=== PATIENT | female | born 1970 | race Hispanic/Latino ===

== ENCOUNTER 2017-07-18 12:46 | Emergency (ER) | payer OTHER ==
[2017-07-18] MEDS ORDERED: MORPHINE SULFATE 4 MG/1ML SYG ONE (12:49)
[2017-07-18] MEDS ORDERED: ONDANSETRON HCL MDV 20ML 2 MG/ML VIAL ONE (12:49)
[2017-07-18] MEDS ORDERED: HYDROMORPHONE 1 MG/1 ML AMP ONE ×2 (13:14→15:05)
[2017-07-18] MEDS ORDERED: LORAZEPAM 2 MG/ML 1 ML VIAL ONE (13:23)
[2017-07-18] MEDS ORDERED: SODIUM CHLORIDE 0.9% 500ML 500 ML IV ONE (13:23)
[2017-07-18] MEDS ORDERED: KETAMINE HCL 100 MG/ML 5ML VIAL IJ ONE (13:23)
[2017-07-18 14:49] LABS: BASOPHILS % (AUTO) 0.4 % (0.0-5.0); EOSINOPHILS % (AUTO) 1.3 % (0.0-8.0); HEMATOCRIT 38.5 % (36-48); LYMPHOCYTES % (AUTO) 18.5 % (21.0-51.0); MEAN CORPUSCULAR HEMOGLOBIN 29.9 pg (27.0-33.0); MEAN CORPUSCULAR HGB CONC 34.1 g/dL (32.0-36.0); MEAN CORPUSCULAR VOLUME 87.5 fL (79-99); MONOCYTES % (AUTO) 4.7 % (3.0-13.0); NEUTROPHILS % (AUTO) 75.1 % (40.0-77.0); PLATELET COUNT (AUTO) 392 K/uL (130-400); RED CELL DISTRIBUTION WIDTH 13.2 % (11.0-15.5); WHITE BLOOD COUNT (AUTO) 9.3 K/uL (4.8-10.8)
[2017-07-18 14:59] LABS: CREATININE 0.8 mg/dL (0.5-1.5)
[2017-07-18] MEDS ORDERED: ONDANSETRON ODT 4 MG TAB ONE (15:20)
[2017-07-20] MEDS ORDERED: IBUP-1673 PO (13:53)
[2017-07-20] MEDS ORDERED: HYDR-4060 PO (13:53)
== END 2017-07-18 15:36 | disposition home or self-care (01) ==
LOC: EDH 12:46
DX: M24.472 Recurrent dislocation, left ankle (principal); S82.492A Other fracture of shaft of left fibula, initial encounter for closed fracture; W18.39XA Other fall on same level, initial encounter; Y93.89 Activity, other specified; Y92.098 Other place in other non-institutional residence as the place of occurrence of the external cause; Y99.8 Other external cause status
CPT/HCPCS: 27840; 36415; 73590 ×2; 73610 ×2; 80048; 84702; 85025; 96361; 96374; 96375; 96376; 99285; J1170 ×2; J2060; J2270; J3490; J7040

== ENCOUNTER 2017-07-24 07:38 | Observation (INO) | payer OTHER ==
[2017-07-20 13:24] LABS: BASOPHILS % (AUTO) 0.8 % (0.0-5.0); EOSINOPHILS % (AUTO) 2.1 % (0.0-8.0); HEMATOCRIT 36.1 % (36-48); LYMPHOCYTES % (AUTO) 25.2 % (21.0-51.0); MEAN CORPUSCULAR HEMOGLOBIN 31.5 pg (27.0-33.0); MEAN CORPUSCULAR HGB CONC 35.7 g/dL (32.0-36.0); MONOCYTES % (AUTO) 5.2 % (3.0-13.0); NEUTROPHILS % (AUTO) 66.7 % (40.0-77.0); PLATELET COUNT (AUTO) 399 K/uL (130-400); RED CELL DISTRIBUTION WIDTH 13.4 % (11.0-15.5); WHITE BLOOD COUNT (AUTO) 8.1 K/uL (4.8-10.8)
[2017-07-20 13:31] LABS: CREATININE 0.8 mg/dL (0.5-1.5)
[2017-07-20 13:50] VITALS: BP 114/83
[~2017-07-24] VITALS: Ht 165.1 cm; Wt 90.7 kg
[2017-07-24] VITALS (23 sets, daily range): BP systolic 96–146; BP diastolic 50–80
[~2017-07-24 07:38] MED LIST: CALDOLOR 800MG+NS 250ML 250 ML IV ONE; DEXAMETHASONE SOD PHOSPHATE 10MG/ML 1ML VIAL ONE; FENTANYL CITRATE PF 50 MCG/1 ML 2ML VIAL ONE; GLYCOPYRROLATE 0.2 MG/ML 5 ML VIAL ONE; HYDR-4060 PO; IBUP-1673 PO; LIDOCAINE PF 2% 5ML ABBOJECT ONE; MIDAZOLAM HCL 1 MG/ML 2ML VIAL ONE; PROPOFOL 10 MG/ML 20ML VIAL IV ONE; ROPIVACAINE 0.5% 5MG/ML 30ML IJ ONE
[2017-07-24] MEDS ORDERED: LACTATED RINGERS 1000ML 1,000 ML IV ONE (08:15)
[2017-07-24] MEDS: CEFAZOLIN SODIUM 1 GM VIAL IVP SCH ×3 (08:30→17:51)
[2017-07-24] MEDS ORDERED: FENTANYL CITRATE PF 50 MCG/1 ML 2ML VIAL ONE ×2 (08:32→11:14)
[2017-07-24] MEDS ORDERED: CEFAZOLIN SODIUM 1 GM VIAL ONE (09:05)
[2017-07-24] MEDS ORDERED: FENTANYL CITRATE PF 50 MCG/1 ML 2ML VIAL IVP SCH (09:58)
[2017-07-24] MEDS ORDERED: ROCURONIUM BROMIDE 10MG/1ML 5ML VL ONE (11:15)
[2017-07-24] MEDS ORDERED: DEXAMETHASONE SOD PHOSPHATE 4 MG/ML 1ML VIAL ONE (11:16)
[2017-07-24] MEDS ORDERED: ONDANSETRON HCL MDV 20ML 2 MG/ML VIAL ONE (11:16)
[2017-07-24] MEDS ORDERED: LIDOCAINE HCL 2% JELLY 5 ML ONE (11:37)
[2017-07-24] MEDS ORDERED: LIDOCAINE HCL 4% LTA SOL 4 ML VIAL ONE (11:37)
[2017-07-24] MEDS: SODIUM CHLORIDE 0.9% 1000ML 1,000 ML IV SCH ×2 (13:14→16:04)
[2017-07-24] MEDS ORDERED: CALCIUM CARBONATE 500 MG TABLET PO PRN (13:15)
[2017-07-24] MEDS ORDERED: HYDROCODONE/ACETAMINOPHEN 5/325 MG TAB PO PRN (13:15)
[2017-07-24] MEDS ORDERED: DiphenhydrAMINE HCL 50 MG/ML VIAL IVP PRN (13:15)
[2017-07-24] MEDS ORDERED: MEPERIDINE-PF 25 MG/ML SYG ONE ×2 (13:23→13:38)
[2017-07-24] MEDS ORDERED: CEFAZOLIN 2GM / 50 ML 50 ML IV SCH (18:15)
[2017-07-24] MEDS: FAMOTIDINE 20MG TAB 20 MG TAB PO SCH (20:06)
[2017-07-24] MEDS: KETOROLAC TROMETHAMINE 15MG/ML IV PRN (20:06)
[2017-07-24] MEDS: ENOXAPARIN SODIUM 40 MG/0.4 ML SYRINGE SQ SCH (21:00)
[2017-07-25] MEDS: HYDROCODONE/ACETAMINOPHEN 5/325 MG TAB PO PRN ×3 (01:32→10:22)
[2017-07-25] MEDS: SODIUM CHLORIDE 0.9% 1000ML 1,000 ML IV SCH ×2 (01:36→09:14)
[2017-07-25] MEDS: CEFAZOLIN SODIUM 1 GM VIAL IVP SCH (01:37)
[2017-07-25] MEDS: KETOROLAC TROMETHAMINE 15MG/ML IV PRN (03:19)
[2017-07-25 05:29] VITALS: BP 119/73
[2017-07-25 07:00] VITALS: BP 132/76
[2017-07-25] MEDS ORDERED: HYDR-309 PO (08:28)
[2017-07-25] MEDS ORDERED: ASPI-1012 PO (08:28)
[2017-07-25] MEDS: FAMOTIDINE 20MG TAB 20 MG TAB PO SCH (08:55)
[2017-07-25] MEDS: ENOXAPARIN SODIUM 40 MG/0.4 ML SYRINGE SQ SCH (08:56)
[2017-07-25] MEDS ORDERED: POLYETHYLENE GLYCOL 3350 17 GM POWD.PACK PO SCH (09:00)
[2017-07-25] MEDS ORDERED: KETOROLAC TROMETHAMINE 60 MG/2 ML VIAL IM SCH (09:15)
[2017-07-25 11:11] VITALS: BP 127/83
[2017-07-25] MEDS ORDERED: PSYLLIUM SEED 1 EACH PACKET PO SCH (12:00)
[2017-07-26] MEDS ORDERED: BISACODYL 5 MG TABLET.DR PO PRN (13:15)
[2017-07-27] MEDS ORDERED: BISACODYL 10 MG SUPP.RECT RC PRN (13:15)
== END 2017-07-25 12:30 | disposition home or self-care (01) ==
LOC: DAH 07:38 → DAHIP 07:39 → 4AH 14:54
PROVIDERS: ADMIT Orthopaedic Surgery; ATTEND Orthopaedic Surgery
DX: S93.412A Sprain of calcaneofibular ligament of left ankle, initial encounter (principal); S93.492A Sprain of other ligament of left ankle, initial encounter; X58.XXXA Exposure to other specified factors, initial encounter; Y93.9 Activity, unspecified; Y92.89 Other specified places as the place of occurrence of the external cause; Y99.9 Unspecified external cause status; Z79.899 Other long term (current) drug therapy; E66.9 Obesity, unspecified; K21.9 Gastro-esophageal reflux disease without esophagitis
CPT/HCPCS: 27612; 27829; 36415; 76000; 80048; 85025; 96374; 97039; 97116 ×2; 97161; A4218 ×2; A4510; A4649 ×4; A4930 ×3; A6223; C1713; G0378 ×29; G8978; G8979; G8980; G8981; G8982; G8983; J0690 ×4; J1100 ×2; J1650; J1741; J1885 ×4; J2001; J2175 ×2; J2250; J2704; J2795; J3010 ×3; J3490 ×2; J7030; J7120; Q4051